=== PATIENT | female | born 1955 | race African-American/Black ===

== ENCOUNTER 2016-06-26 18:13 | Emergency (ER) | payer OTHER ==
[~2016-06-26] VITALS: Ht 177.8 cm; Wt 67.6 kg
[~2016-06-26 18:13] MED LIST: ASPI-482 PO; ATOR20TA PO; CA C1TAB45 PO; MELO-150 PO; METO25TA2 PO; MULT-246 PO; NORT25CA PO
--- NOTE | 2016-06-26 18:50 | PHYS DOC ---
General Chief Complaint: ABDOMINAL PAIN Stated Complaint: DIZZY/ABDOM PAIN/LEFT LEG PAIN Time Seen by MD: 18:27 Source: patient, family Problems: History of Present Illness Initial Comments Patient here with for abdominal pain and left leg pain. Patient states abdominal pain for last 3 weeks. It's roughly constant. She describes it mostly in the lower abdominal area. She barely saw her own physician on post he got what sounds like a pelvic ultrasound which was negative. She is actually here today not only for the abdominal pain, but for the last several days she's had which she describes a "charley horse" in her left lower leg. She is concerned because she says at one time she was told that she had bleeding ulcers a cough circulation to her leg, and she is concerned about circulatory problem to the lower extremity. She's had no fever or chills. There is no runny nose or sore throat. There's no chest pain or shortness of breath. There is no nausea vomiting or other abdominal pain except as described. She is really unable to describe the quality of the abdominal pain. No change in bowel or bladder habits. She's had a slight amount of vaginal spotting, which is what she said prompted her physician order the ultrasound. She has the "charley horse" in the left calf area, but denies any distal weakness numbness or tingling, and says the pain is really isolated During does not radiate down the back or hip. No history of injury or trauma to the area. She still is able to be up and about at home. She denies any other acute focal extremity or neurologic complaints other than vertigo which she states she has chronically and which is not acutely changed or different in any way.. Patient's really done nothing for this home other than see care by telephone physician. There is no other increasing or decreasing factors noted. Patient's past nuchal history is otherwise notable for hypertension. She is a nonsmoker and nonuser of ethanol. Allergies: Coded Allergies: No Known Drug Allergies (Unverified , 08/25/13) Past Medical History Medical History: hypertension Social History Smoker: non-smoker Alcohol: none Review of Systems All Other Systems: Reviewed and Negative Physical Exam General Appearance: WD/WN, no apparent distress Neck: full range of motion, supple, normal inspection Respiratory: normal breath sounds, no respiratory distress Cardiovascular: regular rate, rhythm, no edema Gastrointestinal: soft, no organomegaly, tenderness Back: no CVA tenderness, no vertebral tenderness Extremities: non-tender, normal inspection, no pedal edema Neurologic/Psychiatric: no motor/sensory deficits, alert, normal mood/affect, oriented x 3 Skin: normal color Lymphatic: no adenopathy Comments Generally this well-developed well-nourished female in no acute distress. Vitals are as noted. Pertinent findings on physical exam shows chest to be clear. Cardiac vascular exam shows regular rate and rhythm without murmur. The abdomen is soft. She is mildly diffusely tender, somewhat more so in the epigastric region. There is no masses, organomegaly, or peritoneal findings noted. Back shows no CVA tenderness. No vertebral or paraspinal tenderness. Extremity show no rashes, cyanosis, or edema. There is no redness, cords, asymmetry, or signs of DVT. Patient has minimal tenderness over the mid calf area. No signs of trauma. Pulses obtain with the Doppler device are 1+ bilaterally over the DP, 3+ over the PT, and 2+ over the popliteal bilaterally. The digits and foot are warm. Sensation is intact. There are no gross motor deficits appreciated. Patient is awake alert oriented and cooperative. Remainder of physical exam is clinically unremarkable. Orders, Labs, Meds Old charts note isolated prior ER visits for contusion and flank pain. Labs today are essentially clinically unremarkable. D-dimer is negative. CT scan of the abdomen and pelvis shows a small 3 mm right inferior renal stone but no other acute changes are noted per radiology. 2000 Patient resting comfortably in the ER. Discussed with the patient is uncertain cause for multiple complaints. There certainly does not appear to be any acute circulatory issue going on the left lower extremity. D-dimer is negative and there is no clinical evidence of blood clot. Her pulses are noted to be equal bilaterally, the digits are warm, there is no discoloration. it's suspect any arterial insufficiency. I provided reassurance to the patient's the benign nature of her left calf discomfort, and this may be some unrecalled Bonaparte skeletal strain. I suggested this can be followed up with primary care. We also discussed the patient's abdominal pain of 3 weeks' duration. There is no obvious etiology on CT scan. She barely does have a history of ulcers, and I explained this is really only able to be detected on endoscopy, and if she continues to have pain she may need to talk to her primary care physician about receiving this procedure. She voices understanding. She also states that she has chronic vertigo, but has run out of her meclizine. I'm happy to write her a refill for her meclizine here in the ED, and give her dose tonight get her through the evening. She does voice understanding need to follow up with primary care for his multiple complaints as well as to return to the ER sooner as needed if worsen anyway. She does look reassured that there appears to be nothing more serious going on at this time that would require further evaluation and hospitalization. She looks well, in no acute discomfort distress , okay for discharge home at this time. NINO RENTERIA MD Jun 26, 2016 18:50
--- NOTE | 2016-06-26 19:19 | RAD ---
INDICATION: 61-year-old female with abdominal pain, vertigo and diarrhea for 3 days. History of left kidney cyst, hysterectomy. COMPARISON: August 25, 2013 TECHNIQUE: Axial CT images obtained through the abdomen and pelvis without the use of intravenous contrast. Coronal and sagittal reformats are provided. One or more of the following individualized dose reduction techniques were utilized for this examination: 1. Automated exposure control; 2. Adjustment of the mA and/or kV according to patient size; 3. Use of iterative reconstruction technique. FINDINGS: Visualized lung bases appear clear. Detailed evaluation of the intra-abdominal and pelvic organs and vascular structures is limited secondary to lack of IV contrast. Within this limitation, the liver, spleen, gallbladder, pancreas, adrenal glands and right kidney demonstrate no focal abnormality. A 3 mm calculus is re-demonstrated within the inferior right kidney, similar to the previous exam. No left-sided nephrolithiasis, bilateral ureterolithiasis, nor hydronephrosis is present. The GI tract demonstrates no dilated bowel loops to suggest obstruction. Appendix is normal in caliber in the right lower quadrant. The urinary bladder demonstrates no focal abnormality. No intra-abdominal or pelvic free fluid, free air or significant lymphadenopathy is seen. The aorta is normal in caliber. Visualized osseous structures and overlying soft tissues demonstrate no acute or suspicious interval change. Degenerative changes re-demonstrated in the lumbar spine. IMPRESSION: No acute intra-abdominal or pelvic process is seen. Nonobstructing 3 mm right inferior renal calculus is re-demonstrated. Electronically signed by: Sharmaine Cha (Jun 26, 2016 19:18:31)
[2016-06-26 19:20] VITALS: BP 114/69
[2016-06-26 19:31] LABS: BASO % 0 % (0-3); EOS # 0.1 x10^3/uL (0.0-0.7); EOS % 2 % (0-3); HEMATOCRIT 38.1 % (36.0-47.0); HEMOGLOBIN 12.1 g/dL (12.0-15.5); LYMPH % 39 % (24-48); MEAN CORPUSCULAR HEMOGLOBIN 28 pg (25-35); MEAN CORPUSCULAR HGB CONC 32 g/dL (31-37); MEAN CORPUSCULAR VOLUME 86 fL (79-100); MONO # 0.5 x10^3/uL (0.0-1.1); MONO % 9 % (0-9); NEUT # 2.6 x10^3uL (1.8-7.7); NEUT % 50 % (31-73); PLATELET COUNT 196 x10^3/uL (140-400); RED BLOOD COUNT 4.41 x10^6/uL (3.50-5.40); RED CELL DISTRIBUTION WIDTH 13.3 % (11.5-14.5); WHITE BLOOD COUNT 5.2 x10^3/uL (4.0-11.0)
[2016-06-26 19:43] LABS: ALBUMIN 3.8 g/dL (3.4-5.0); ALBUMIN/GLOBULIN RATIO 1.1 (1.0-1.7); CALCIUM 9.6 mg/dL (8.5-10.1); CREATININE 0.8 mg/dL (0.6-1.0); GFR 87.7; POTASSIUM 3.9 mmol/L (3.5-5.1); TOTAL BILIRUBIN 0.4 mg/dL (0.2-1.0); TOTAL PROTEIN 7.4 g/dL (6.4-8.2)
[2016-06-26 19:47] LABS: BACTERIA,URINE 0 /HPF (0-FEW); BILIRUBIN,URINE NEG (NEG); CLARITY,URINE CLEAR; COLOR,URINE YELLOW; GLUCOSE,URINE NEG (NEG); NITRITE,URINE NEG (NEG); RBC,URINE RARE /HPF (0-2); SQUAMOUS EPITHELIAL CELL,UR OCC /LPF; UROBILINOGEN,URINE 0.2 mg/dL (0.2 mg/dL); WBC,URINE OCC /HPF (0-4)
[2016-06-26] MEDS ORDERED: MECLIZINE 25 MG TABLET PO ONE (20:30)
== END 2016-06-26 20:19 | disposition home or self-care (01) ==
LOC: ER 18:13
DX: M79.662 Pain in left lower leg (principal); R10.13 Epigastric pain; I10 Essential (primary) hypertension
CPT/HCPCS: 36415; 74176; 80053; 81001; 82150; 83690; 85027; 85379; 99285-25

== ENCOUNTER 2016-07-19 09:05 | Emergency (ER) | payer OTHER ==
[~2016-07-19] VITALS: Ht 177.8 cm; Wt 72.4 kg
[~2016-07-19 09:05] MED LIST changes: -MELO-150 PO; +MELO15TA23 PO
[2016-07-19 09:10] VITALS: BP 100/58
[2016-07-19 09:54] LABS: BASO % 0 % (0-3); EOS # 0.1 x10^3/uL (0.0-0.7); EOS % 2 % (0-3); HEMOGLOBIN 12.1 g/dL (12.0-15.5); LYMPH # 2.1 x10^3/uL (1.0-4.8); LYMPH % 49 % (24-48); MEAN CORPUSCULAR HEMOGLOBIN 28 pg (25-35); MEAN CORPUSCULAR HGB CONC 32 g/dL (31-37); MEAN CORPUSCULAR VOLUME 86 fL (79-100); MONO # 0.4 x10^3/uL (0.0-1.1); MONO % 11 % (0-9); NEUT # 1.6 x10^3uL (1.8-7.7); NEUT % 38 % (31-73); PLATELET COUNT 217 x10^3/uL (140-400); RED BLOOD COUNT 4.42 x10^6/uL (3.50-5.40); RED CELL DISTRIBUTION WIDTH 12.8 % (11.5-14.5); WHITE BLOOD COUNT 4.2 x10^3/uL (4.0-11.0)
[2016-07-19 10:07] LABS: ALBUMIN 3.8 g/dL (3.4-5.0); ALBUMIN/GLOBULIN RATIO 1.1 (1.0-1.7); CALCIUM 9.3 mg/dL (8.5-10.1); CREATININE 0.9 mg/dL (0.6-1.0); GFR 76.5; POTASSIUM 4.6 mmol/L (3.5-5.1); TOTAL BILIRUBIN 0.4 mg/dL (0.2-1.0); TOTAL PROTEIN 7.3 g/dL (6.4-8.2)
--- NOTE | 2016-07-19 10:15 | ED.ADGEN ---
Past History Past Medical History: Anxiety, High Cholesterol, Hypertension Past Surgical History: Hysterectomy Smoking: Non-smoker Alcohol Use: None Drug Use: None Adult General Chief Complaint Chief Complaint Cramping in Legs and toes this AM HPI HPI Patient is a 61year old F who presents with leg and toe cramping . Pt states was in ER seen on 06/26/16 with abdominal pain and some calf pain. Pt had a ddimer done and pulse doppler. Followed up with PCP and "everything fine" pt had labs done by PCP and results pending. Pt states yesterday the cramping returned in backs of both legs below the knee. Then approx 7am this morning severe cramps and then toes cruled under. Better now but worried something is wrong since seems to have recurrence from last month. Pt states seen in ER 06/26/16 for abdominal pain and leg cramps. Was told to follow up with PCP which she did and was told everything is fine. Pt has outpt labs pending from PCP. She had a ddimer last ER was normal. She states leg cramps started again yesterday and then this AM worse with pain/ cramping causing toes to curl under. Better now but worried about recurrence of symptoms so came to ER to get checked out. Review of Systems Review of Systems Constitutional: Denies fever or chills Eyes: Denies change in visual acuity, redness, or eye pain HENT: Denies nasal congestion or sore throat Respiratory: Denies cough or shortness of breath Cardiovascular: No chest pain, no syncope GI: Denies abdominal pain, nausea, vomiting, bloody stools or diarrhea : Denies dysuria or hematuria Musculoskeletal: Denies back pain Integument: Denies rash or skin lesions Neurologic: Denies headache, focal weakness or sensory changes Allergies Allergies Allergies Coded Allergies Type Severity Reaction Last Updated Verified No Known Drug Allergies 08/25/13 No Physical Exam Physical Exam Constitutional: Well developed, well nourished, no acute distress, non-toxic appearance. [] HENT: Normocephalic, atraumatic, bilateral external ears normal, oropharynx moist, no oral exudates, nose normal. [] Eyes: PERRLA, EOMI, conjunctiva normal, no discharge. [] Neck: Normal range of motion, no tenderness, supple, no stridor. [] Cardiovascular:Heart rate regular rhythm, no murmur [] Lungs & Thorax: Bilateral breath sounds clear to auscultation [] Abdomen: Bowel sounds normal, soft, no tenderness, no masses, no pulsatile masses. [] Skin: Warm, dry, no erythema, no rash. [] Back: No tenderness, no CVA tenderness. [] Extremities: No tenderness, no cyanosis, no clubbing, ROM intact, no edema. [] Neurologic: Alert and oriented X 3, normal motor function, normal sensory function, no focal deficits noted. [] Psychologic: Affect normal, judgement normal, mood normal. [] Current Patient Data Vital Signs Vital Signs Date Time Temp Pulse Resp B/P (MAP) Pulse Ox O2 Delivery O2 Flow Rate FiO2 07/19/16 09:10 98.3 57 18 97 Room Air Lab Results Laboratory Tests Test 07/19/16 09:35 White Blood Count 4.2 x10^3/uL (4.0-11.0) Red Blood Count 4.42 x10^6/uL (3.50-5.40) Hemoglobin 12.1 g/dL (12.0-15.5) Hematocrit 38.0 % (36.0-47.0) Mean Corpuscular Volume 86 fL (79-100) Mean Corpuscular Hemoglobin 28 pg (25-35) Mean Corpuscular Hemoglobin Concent 32 g/dL (31-37) Red Cell Distribution Width 12.8 % (11.5-14.5) Platelet Count 217 x10^3/uL (140-400) Neutrophils (%) (Auto) 38 % (31-73) Lymphocytes (%) (Auto) 49 % (24-48) H Monocytes (%) (Auto) 11 % (0-9) H Eosinophils (%) (Auto) 2 % (0-3) Basophils (%) (Auto) 0 % (0-3) Neutrophils # (Auto) 1.6 x10^3uL (1.8-7.7) L Lymphocytes # (Auto) 2.1 x10^3/uL (1.0-4.8) Monocytes # (Auto) 0.4 x10^3/uL (0.0-1.1) Eosinophils # (Auto) 0.1 x10^3/uL (0.0-0.7) Basophils # (Auto) 0.0 x10^3/uL (0.0-0.2) D-Dimer (Nica) 0.39 mg/L (0.00-0.50) Sodium Level 143 mmol/L (136-145) Potassium Level 4.6 mmol/L (3.5-5.1) Chloride Level 107 mmol/L (98-107) Carbon Dioxide Level 30 mmol/L (21-32) Anion Gap 6 (6-14) Blood Urea Nitrogen 14 mg/dL (7-20) Creatinine 0.9 mg/dL (0.6-1.0) Estimated GFR (Cockcroft-Gault) 76.5 BUN/Creatinine Ratio 16 (6-20) Glucose Level 100 mg/dL (70-99) H Calcium Level 9.3 mg/dL (8.5-10.1) Magnesium Level 2.0 mg/dL (1.8-2.4) Total Bilirubin 0.4 mg/dL (0.2-1.0) Aspartate Amino Transferase (AST) 22 U/L (15-37) Alanine Aminotransferase (ALT) 25 U/L (14-59) Alkaline Phosphatase 79 U/L (46-116) Total Protein 7.3 g/dL (6.4-8.2) Albumin 3.8 g/dL (3.4-5.0) Albumin/Globulin Ratio 1.1 (1.0-1.7) EKG EKG [] Radiology/Procedures Radiology/Procedures [] Course & Med Decision Making Course & Med Decision Making Pertinent Labs and Imaging studies reviewed. (See chart for details) [] Final Impression Final Impression BILATERAL LEG CRAMPING/PAIN[] Problems: Dragon Disclaimer Dragon Disclaimer This electronic medical record was generated, in whole or in part, using a voice recognition dictation system. EMY MCGUIRE MD July 19, 2016 10:15
--- NOTE | 2016-07-19 10:55 | RAD ---
Exam performed: Bilateral lower extremity venous Doppler. Clinical Indication: Bilateral leg pain Date of Service:07/19/16 Comparison : None available Discussion: Multiple longitudinal and transverse high resolution real-time images of the venous system of bilateral lower extremity were obtained with color and Doppler sampling and spectral analysis. The common femoral, superficial femoral, popliteal and proximal calf veins are all patent and demonstrate normal flow and compressibility. Normal respiratory phasicity and augmentation is present. Impression: Normal color duplex ultrasound of the venous system of bilateral lower extremity.
== END 2016-07-19 11:22 | disposition home or self-care (01) ==
LOC: ER 09:05
DX: M79.662 Pain in left lower leg (principal); M79.661 Pain in right lower leg; E78.00 Pure hypercholesterolemia, unspecified; I10 Essential (primary) hypertension
CPT/HCPCS: 36415; 80053; 83735; 85027; 85379; 93970; 99285-25

== ENCOUNTER → 2017-11-08 | Outpatient (CLI) | payer OTHER ==
--- NOTE | 2017-11-08 12:32 | RAD ---
EXAM: Dual energy x-ray absorptiometry (DEXA). HISTORY: Postmenopausal female presents for osteoporosis screening. COMPARISON: 07/05/2006. TECHNIQUE: Dual energy x-ray absorptiometry of the lumbar spine and right hip was performed. Calculation of bone mineral density based on standard deviations above or below the expected young adult normal value (T-score) was completed. FINDINGS: The average bone mineral density in the 1st through 4th lumbar vertebrae is 1.196 g/cmxcm, corresponding with a T-score of 0.1. There has been a 12.7% decrease in density compared to the baseline study dated 07/05/2006. The average total bone mineral density in the right hip is 0.808 g/cmxcm, corresponding with a T-score of -1.2. There has been a 8.7% decrease in density of the right hip compared to the baseline study dated 07/05/2006. IMPRESSION: 1. Osteopenia measured at the right hip. 2. Normal bone mineral density measured at the lumbar spine. Note: Definitions established by the World Health Organization: 1. Normal: T-score is -1.0 or above. 2. Osteopenia: T-score is between -1.0 and -2.5 . 3. Osteoporosis: T-score is -2.5 or below. Electronically signed by: Kaylin Kirkland MD (11/08/2017 12:28 PM) [place] [id number]
== END | disposition home or self-care (01) ==
LOC: DXRAD 10:14
PROVIDERS: ATTEND Family Medicine
DX: Z13.820 Encounter for screening for osteoporosis (principal); M85.88 Other specified disorders of bone density and structure, other site; I10 Essential (primary) hypertension; E78.00 Pure hypercholesterolemia, unspecified; I25.10 Atherosclerotic heart disease of native coronary artery without angina pectoris; Z90.710 Acquired absence of both cervix and uterus
CPT/HCPCS: 77080

== ENCOUNTER → 2018-08-22 | Outpatient (CLI) | payer MEDICARE, OTHER ==
[~2018-08-22] MED LIST changes: +IOHEXOL 300 MG/ML 75 ML VIAL. IV ONE
[2018-08-22 11:59] LABS: GFR 67.3
--- NOTE | 2018-08-22 17:46 | RAD ---
CT scan of the neck with contrast 08/22/2018 CLINICAL HISTORY: Localized swelling lump along the right side of the neck. TECHNIQUE: After the intravenous administration of 75 cc of Omnipaque 300, contiguous, 3 mm axial sections were obtained through the neck. One or more of the following individualized dose reduction techniques were utilized for this study: 1. Automated exposure control. 2. Adjustment of the mA and/or kV according to patient size. 3. Use of iterative reconstruction technique. FINDINGS: The mucosal structures of the nasopharynx, oropharynx, hypopharynx and larynx are within normal limits. The parotid and submandibular glands are within normal limits. The thyroid gland is within normal limits. A marker was placed by the aeronautical engineering technologist in the right neck in the area where the patient feels a palpable abnormality. No definite abnormality is seen in this region on CT. No abnormal soft tissue mass is noted. No abnormal fluid collection is seen. No cervical lymphadenopathy is identified. The patient is edentulous. The visualized paranasal sinuses are clear. The mastoid air cells and middle ear cavities are well aerated and are clear. Degenerative changes are seen involving the uncovertebral and facet joints throughout the cervical spine. IMPRESSION: No definite abnormality is seen on CT in the area where the patient feels a palpable abnormality. No acute abnormality is seen. Electronically signed by: Phillip Larios MD (08/22/2018 5:44 PM) [id number]
== END | disposition home or self-care (01) ==
LOC: CT 10:44
PROVIDERS: ATTEND Otolaryngology
DX: M47.812 Spondylosis without myelopathy or radiculopathy, cervical region (principal)
CPT/HCPCS: 36415; 70491; 82565; 84520; Q9967

== ENCOUNTER → 2018-10-16 | Outpatient (CLI) | payer MEDICARE, OTHER ==
[~2018-10-16] MED LIST changes: -IOHEXOL 300 MG/ML 75 ML VIAL. IV ONE
--- NOTE | 2018-10-16 13:20 | RAD ---
EXAM: Renal sonogram. HISTORY: Cystitis. TECHNIQUE: Sonographic imaging of the kidneys and bladder was performed. COMPARISON: None. FINDINGS: The right kidney measures 9.6 cm [id number]. The left kidney measures 8.7 cm [id number]. No solid or cystic renal lesion is seen. There is no hydronephrosis. The aorta is normal in caliber. The bladder volume is 26 cc. The ureteral jets are seen during the exam. IMPRESSION: 1. Decreased left renal size. This may be due to measurement technique or mild atrophy. 2. Otherwise, sonographically unremarkable kidneys. Electronically signed by: Kaylin Kirkland MD (10/16/2018 1:17 PM) [facility]
== END | disposition home or self-care (01) ==
LOC: US 12:45
PROVIDERS: ATTEND Urology
DX: N26.1 Atrophy of kidney (terminal) (principal); N30.20 Other chronic cystitis without hematuria
CPT/HCPCS: 76770

== ENCOUNTER → 2019-01-25 | Outpatient (CLI) | payer MEDICARE, OTHER ==
--- NOTE | 2019-01-25 17:23 | RAD ---
Examination: THYROID ULTRASOUND History: Thyroid nodule Comparison/Correlation: None Findings: Right thyroid lobe measures 3.5 cm x 1 cm x 1.2 cm. Left thyroid lobe measures 2.3 cm x 0.80 x 1.3 cm. Thyroid isthmus is unremarkable in thickness. The right thyroid lobe at its junction with the isthmus has a 1 cm x 0.7 cm x 0.4 cm total well-circumscribed hypoechoic nodule. There is flow about the periphery of the nodule laterally. No left thyroid lobe nodule. Impression: TI-RADS Category 4 moderately suspicious. Six-month follow-up ultrasound exam to assess stability is recommended. Electronically signed by: Mart Evans MD (01/25/2019 5:20 PM) [facility]
== END | disposition home or self-care (01) ==
LOC: US 10:52
PROVIDERS: ATTEND Otolaryngology
DX: E04.1 Nontoxic single thyroid nodule (principal)
CPT/HCPCS: 76536

== ENCOUNTER → 2019-05-17 | Outpatient (CLI) | payer MEDICARE, OTHER ==
[~2019-05-17] MED LIST changes: +BUPIVACAINE MPF 0.25% 10 ML VIAL. ONE; +CITA10TA8 PO; +IOHEXOL 300 MG/ML 50 ML VIAL. ONE; +LIDOCAINE 1% PF 30 ML VIAL. ONE; +METO-239 PO; +methylPREDNISolone ACETATE 80 MG/ML VIAL. ONE
[2019-05-17 09:45] VITALS: BP 119/77
== END ==
LOC: SURG 08:51
PROVIDERS: ATTEND Anesthesiology Pain Medicine
DX: M25.562 Pain in left knee (principal)
CPT/HCPCS: 20610; J1040; J2001; J3490; Q9967; 20611

== ENCOUNTER → 2019-09-04 | Outpatient (CLI) | payer MEDICARE, OTHER ==
[2019-05-17 09:45] VITALS: BP 119/77
[~2019-09-04] MED LIST changes: -BUPIVACAINE MPF 0.25% 10 ML VIAL. ONE; -IOHEXOL 300 MG/ML 50 ML VIAL. ONE; -LIDOCAINE 1% PF 30 ML VIAL. ONE; -methylPREDNISolone ACETATE 80 MG/ML VIAL. ONE
--- NOTE | 2019-09-04 13:06 | RAD ---
Thyroid ultrasound 09/04/2019 CLINICAL HISTORY: History of thyroid nodule. TECHNIQUE: A real-time ultrasound examination of the thyroid gland was performed. Multiple images were obtained. FINDINGS: Comparison study is dated 01/25/2019. The thyroid gland is normal in size. The right lobe of the thyroid gland measures 4.5 x 1.7 x 1.2 cm in longitudinal, transverse, and AP dimensions. The left lobe of thyroid gland measures 4.0 x 1.2 x 1.0 cm in size. The isthmus measures 2 mm in thickness. Within the inferior aspect of the right lobe of the thyroid gland an oval-shaped hypoechoic nodule is seen which measures 7 mm in greatest diameter. This has decreased in size slightly when compared to the previous examination where it measured 1 cm in greatest diameter. No new nodule is seen. IMPRESSION: Slight interval decrease in size of the 7 mm hypoechoic nodule within the right lobe of the thyroid gland. No new nodule is seen. Electronically signed by: Phillip Larios MD (09/04/2019 1:03 PM) [id number]
== END | disposition home or self-care (01) ==
LOC: US 09:03
PROVIDERS: ATTEND Otolaryngology
DX: E04.1 Nontoxic single thyroid nodule (principal)
CPT/HCPCS: 76536